=== PATIENT | female | born 1995 | race American Indian/Alaskan Native ===

== ENCOUNTER 2018-08-02 18:26 | Emergency (ER) | payer SELFPAY ==
[2018-08-02 18:31] VITALS: BMI 36.0
[2018-08-02 18:59] VITALS: RESP 18; TEMP 98.9
--- NOTE | 2018-08-02 19:28 | ED PDOC ---
Arrival/HPI - General Chief Complaint: Upper Extremity Problem/Injury Time Seen by Provider: 08/02/18 18:37 Historian: Patient - History of Present Illness Narrative History of Present Illness (Text): 08/02/18 19:39 22-year-old female complaining of left shoulder pain radiating down her left hand for the past 2 days. Patient reports that the pain is burning sensation. Otherwise reports no trauma, injury, fever, neck pain, chest pain, back pain, numbness, weakness, other joint pain. Past Medical History - Infectious Disease Hx of Infectious Diseases: None - Pulmonary Hx Asthma: Yes - Neurological Hx Migraine: Yes - Psychiatric Hx Substance Use: No Family/Social History Family/Social History: No Known Family HX Smoking Status: Never Smoked Hx Alcohol Use: No Hx Substance Use: No Allergies/Home Meds Allergies/Adverse Reactions: Allergies No Known Allergies Allergy (Verified 08/02/18 18:31) Review of Systems - Review of Systems Constitutional: absent: Fatigue, Fevers Respiratory: absent: SOB, Cough Cardiovascular: absent: Chest Pain, Palpitations Gastrointestinal: absent: Abdominal Pain, Nausea, Vomiting Genitourinary Female: absent: Dysuria, Frequency Musculoskeletal: Arthralgias. absent: Back Pain, Neck Pain Skin: absent: Rash, Skin Lesions Neurological: absent: Headache, Dizziness Physical Exam Vital Signs Temp Pulse Resp BP Pulse Ox 08/02/18 18:26 98.9 F 71 18 146/72 100 Temperature: Afebrile Blood Pressure: Normal Pulse: Regular Respiratory Rate: Normal Appearance: Positive for: Well-Appearing, Non-Toxic, Comfortable Pain Distress: None Mental Status: Positive for: Alert and Oriented X 3 - Systems Exam Head: Present: Atraumatic, Normocephalic Pupils: Present: PERRL Extroacular Muscles: Present: EOMI Conjunctiva: Present: Normal Mouth: Present: Moist Mucous Membranes Neck: Present: Normal Range of Motion. No: Meningeal Signs, MIDLINE TENDERNESS, Paraspinal Tenderness, Lymphadenopathy Respiratory/Chest: Present: Clear to Auscultation, Good Air Exchange. No: Respiratory Distress, Accessory Muscle Use Cardiovascular: Present: Regular Rate and Rhythm, Normal S1, S2. No: Murmurs Back: Present: Normal Inspection. No: Midline Tenderness Upper Extremity: Present: Normal Inspection, Normal ROM, NORMAL PULSES, Tenderness (+mild tenderness to the L shoulder), Neurovascularly Intact, Capillary Refill < 2s, Norm 2-Pt Discrimination. No: Cyanosis, Edema, Swelling, Erythema, Temperature Abnormalties, Deformity Lower Extremity: Present: Normal Inspection. No: Edema Neurological: Present: GCS=15, CN II-XII Intact, Speech Normal, Motor Func Grossly Intact, Normal Sensory Function Skin: Present: Warm, Dry, Normal Color. No: Rashes Psychiatric: Present: Alert, Oriented x 3, Normal Insight, Normal Concentration Medical Decision Making ED Course and Treatment: 08/02/18 19:41 Plan : - XR L shoulder - XR C spine - Toradol IM - Lidoderm patch - EKG EKG: NSR at 69 bpm, (-) acute ST changes, as read by PA. Patient is refusing to give a urine specimen for urine hCG. Now she is also refusing analgesic medications and x-rays. Patient states that she wants to leave the emergency room against medical advice. The patient is choosing to leave against medical advice. I have personally explained to the patient that choosing to do so may result in permanent bodily harm or . I have discussed at great length that without further evaluation and monitoring there may be unforeseen circumstances and/or deterioration causing permanent bodily harm or as a result of their choice. The patient is alert, oriented, and shows the mental capacity to make clear decisions regarding the patients health care at this time. The patient continues to wish to leave against medical advice. In light of the patients decision to leave against medical advice, the patient was encouraged to follow-up with pmd and the patient is aware of the importance to following up as instructed. The patient has been advised that they should return to the emergency room immediately if they change their mind at any time, or if their condition begins to change or worsen in any way. - RAD Interpretation Radiology Orders: 08/02/18 19:03 CERVICAL SPINE AP & LATERAL [RAD] Stat SHOULDER LEFT [RAD] Stat - Medication Orders Current Medication Orders: Lidocaine (Lidoderm) [address] Discontinued Medications Ketorolac Tromethamine (Toradol) 60 mg IM STAT STA Stop: 08/02/18 19:06 Last Admin: 08/02/18 19:08 Dose: Not Given Non-Admin Reason: Patient Refused - PA / REVENUE CYCLE ANALYST / Resident Statement MD/DO has reviewed & agrees with the documentation as recorded. Disposition/Present on Arrival - Present on Arrival Any Indicators Present on Arrival: No History of DVT/PE: No History of Uncontrolled Diabetes: No Urinary Catheter: No History of Decub. Ulcer: No History Surgical Site Infection Following: None - Disposition Have Diagnosis and Disposition been Completed?: Yes Diagnosis: Left shoulder pain Disposition: AGAINST MEDICAL ADVICE Disposition Time: 19:20 Patient Plan: Other (Patient leaving AMA) Patient Problems: Current Active Problems Problem Status Onset Left shoulder pain Acute Condition: STABLE Discharge Instructions (ExitCare): Shoulder Pain (DC), Leaving Against Medical Advice Additional Instructions: Thank you for letting us take care of you today. You were treated for L shoulder pain. The emergency medical care you received today was directed at your acute symptoms. If you were prescribed any medication, please fill it and take as directed. It may take several days for your symptoms to resolve. Return to the Emergency Department if your symptoms worsen, do not improve, or if you have any other problems. Please contact your doctor in 2 days for re-evaluation and follow up / or call one of the physicians/clinics you have been referred to that are listed on the Patient Visit Information form that is included in your discharge packet. Bring any paperwork you were given at discharge with you along with any medications you are taking to your follow up visit. Our treatment cannot replace ongoing medical care by a primary care provider (PCP) outside of the emergency department. Thank you for allowing the [facility] team to be part of your care today. Prescriptions: Cyclobenzaprine [Cyclobenzaprine HCl] 10 mg PO TID PRN #15 tab PRN Reason: Muscle Spasm Naproxen 500 mg PO BID #30 tab Referrals: Audrey Dooley MD [Primary Care Provider] - Follow up with primary Forms: [employer] (Stateless)
[2018-08-02 20:43] VITALS: BP 117/76; PULSE 83; O2SAT 99
--- NOTE | 2018-08-03 09:03 | CARD ---
APPROVED REPORT Date of service: 08/02/2018 EKG Measurement Heart [id number] <Conclusion> Normal sinus rhythm with sinus arrhythmia Normal ECG
[2018-08-03] MEDS ORDERED: Lidocaine 5% Patch TD SCH (10:00)
== END 2018-08-02 19:20 | disposition left against medical advice (07) ==
LOC: ED 18:26
DX: M25.512 Pain in left shoulder (principal)